=== PATIENT | female | born 1980 | race Caucasian/White ===

== ENCOUNTER 2016-10-28 06:51 | Day surgery (SDC) | payer BC ==
--- NOTE | 2016-10-28 06:37 | History and Physical Report ---
DATE OF EVALUATION: 10/27/2016. CHIEF COMPLAINT AND HISTORY OF CHIEF COMPLAINT: This patient presents with a history of intractable lumbar radiculitis. Due to the failure of all therapies and the heavy reliance upon oral medications with subsequent titration off, she is here for an implanted spinal infusion trial with hydromorphone to determine if this device can maintain pain control and keep her medication requirements down. PAST MEDICAL HISTORY: Noncontributory. REVIEW OF SYSTEMS: The patient is appropriate and in no acute distress. The remainder of the systems review shows migraine headaches, degenerative arthritis , fibromyalgia, depression. SOCIAL HISTORY: Noncontributory. FAMILY HISTORY: Diabetes, coronary artery disease, hypertension. PAST SURGICAL HISTORY: Eye surgery, gallbladder surgery, gastric surgery. ALLERGIES: Compazine and Vistaril. MEDICATIONS ON ADMISSION: To be provided. PHYSICAL EXAMINATION: General: Height is 5 feet, 6 inches. Weight is 200 pounds. Vital Signs: Unavailable. HEENT: Within normal limits. Lungs: Clear. Heart: Regular rate and rhythm. Abdomen: Nontender. Musculoskeletal: Examination of the musculoskeletal system shows diffuse tenderness throughout the lumbar spine. Range of motion produces pain throughout the low back and extending into the extremities. Ambulation: No assistive device utilized. Neurologic: Cranial nerves are intact. IMPRESSION: LUMBAR RADICULITIS, ICD10 CODE M54.16 AND M54.17. PLANS: This patient is here for an implanted spinal catheter infusion trial with hydromorphone. An epidural blood patch will be performed as a prophylactic measure against spinal headache. Consistent with a history of migraine headaches, she is prone and vulnerable to the headache from the dural puncture. The procedure will be outpatient, although an overnight stay will be evaluated. The potential risks, side effects, and complications have all been carefully reviewed and discussed including nerve root injury, spinal cord injury , and headaches. A booklet and CD-ROM provided by the executive steward were presented for the patient and her to review. Eitan Cornell D.O. Date Time JOB NUMBER: [id number] cc: Zeke Gardiner
[~2016-10-28 06:51] MED LIST: ACETAMINOPHEN 1000MG/100 ML PREMIX IV ONE; CEFAZOLIN 2 Gram 50 ML IVPB ONE; FAMOTIDINE 20MG TABLET PO ONE; HYDROMORPHONE HCL IV ONE; MECLIZINE 25 MG TABLET PO ONE; METOCLOPRAMIDE 10 MG TABLET PO ONE; SODIUM CHLORIDE 0.9% IV ONE
[2016-10-28] MEDS ORDERED: AL HYDROX/MAG HYDROX 30ML UD PO PRN (10:56)
[2016-10-28] MEDS ORDERED: DIPHENHYDRAMINE HCL 25 MG CAPSULE PO PRN ×2 (10:56)
[2016-10-28] MEDS ORDERED: SENNOSIDES/DOCUSATE SODIUM UD CAPSULE PO PRN ×2 (10:56)
[2016-10-28] MEDS ORDERED: METOCLOPRAMIDE 10 MG TABLET PO PRN (10:56)
[2016-10-28] MEDS ORDERED: HYDROMORPHONE HCL 1 MG/ML CPJ IM PRN (10:56)
[2016-10-28] MEDS ORDERED: HYDROMORPHONE HCL 2 MG/ML VIAL IM PRN (10:56)
[2016-10-28] MEDS ORDERED: METOCLOPRAMIDE HCL 10 MG/2 ML VIAL IVP PRN (10:56)
[2016-10-28] MEDS ORDERED: OXYCODONE/APAP 10MG-325MG TABLET PO PRN ×2 (10:56)
[2016-10-28] MEDS ORDERED: DIPHENHYDRAMINE HCL IV 50 MG/ML VIAL IVP PRN ×2 (10:56)
[2016-10-28] MEDS ORDERED: HYDROCODONE/APAP 7.5/325MG TABLET PO PRN ×2 (10:56)
[2016-10-28] MEDS ORDERED: TEMAZEPAM 15 MG CAPSULE PO PRN ×2 (10:56)
[2016-10-28] MEDS ORDERED: NALOXONE 0.4 MG/1 ML VIAL IVP PRN (10:56)
[2016-10-28] MEDS ORDERED: ACETAMINOPHEN 325 MG TAB PO PRN ×2 (10:56)
[2016-10-28] MEDS ORDERED: LORAZEPAM 0.5 MG TABLET PO PRN (11:01)
[2016-10-28] MEDS: RINGERS SOLUTION,LACTATED 1,000 ML IV SCH ×3 (11:57→22:26)
[2016-10-28] MEDS ORDERED: CEFAZOLIN 1G VIAL IM ONE (12:20)
[2016-10-28] MEDS ORDERED: LIDOCAINE 1% W/EPI 1:200,000 MPF 30ML SQ ONE (12:20)
[2016-10-28] MEDS ORDERED: BUPIVACAINE 0.5% W/EPI MPF 30 ML VIAL IVP ONE (12:20)
[2016-10-28] MEDS: CEFAZOLIN 2 Gram 50 ML IVPB SCH ×2 (15:51→23:20)
--- NOTE | 2016-10-28 16:25 | Operative Note - [place] ---
DATE OF SURGERY: 10/28/16 PREOPERATIVE DIAGNOSIS: INTRACTABLE LUMBAR RADICULITIS, ICD-10 CODE = M54.16 AND M54.17. OPERATION: 1. FLUOROSCOPICALLY-GUIDED SPINAL ACCESS AT L2/3, PLACEMENT OF THIN-WALLED SPINAL CATHETER T12. 2. DIAGNOSTIC MYELOGRAPHY WITH RADIOLOGIC SUPERVISION AND INTERPRETATION. 3. SPINAL OPIOID BOLUS HYDROMORPHONE 0.002 MG SPINAL SPACE. 4. INCISION, SUBCUTANEOUS DISSECTION, AND ANCHORING OF SPINAL CATHETER TO SUPRASPINOUS FASCIA USING ANCHORING DEVICE AND NONABSORBABLE SUTURE. 5. INCISION, SUBCUTANEOUS DISSECTION, AND CREATION OF SUBCUTANEOUS POUCH, LEFT POSTERIOR GLUTEAL MARGIN. 6. TUNNELING BETWEEN MIDLINE POUCH TO GLUTEAL MARGIN POUCH PLACING CATHETER INTO SMALL POUCH AT GLUTEAL MARGIN. 7. INTERFACE INDWELLING SPINAL CATHETER TO SECONDARY SPINAL COMPONENT BY WAY OF CONNECTOR. TUNNELING SECOND CATHETER COMPONENT SUPERIOR 6 CM EXITING SKIN. 8. INTERFACE EXTERNAL CATHETER TO INFUSION PUMP SET TO DELIVER HYDROMORPHONE AT 0.04 MG PER DAY. 9. CLOSURE OF INCISIONS MIDLINE VICRYL FOR FASCIAL AND RUNNING SUBCUTICULAR VICRYL FOR SKIN, POSTERIOR GLUTEAL INCISION NYLON SUTURE. 10. EPIDURAL BLOOD PATCH AT L3/4, 20 ML AUTOLOGOUS BLOOD DRAWN STERILE TECHNIQUE, LEFT ANTECUBITAL. 11. ALL STERILE DRESSINGS PLACED COVERING CATHETER AND ALL CONNECTIONS UNDER STERILE DRESSING. PATIENT TRANSPORTED TO RECOVERY ROOM STABLE, FLAT, PILLOW UNDER HEAD AND KNEES. SURGEON: SULEMA GEORGE D.O. ANESTHESIA: LOCAL SEDATION. ANESTHESIA PROVIDER: ANTONIO MEJIA CRNA INDICATION: This patient presents with a history of intractable lumbar radiculitis. Due to the failure of all therapies, she is here for a trial of spinal opioids with an implanted catheter technique to determine if implantation of a permanent system can be of any value in her pain control. PROCEDURE: Intravenous line, vital sign monitoring, IV sedation, prepped and draped in sterile technique, patient prone. The spinal interspace at L2/3 was marked, infiltrated, and then a 20-gauge spinal needle beveled long axis in a paramedian approach was used to gain entry into the spinal space. With CSF, a thin-walled spinal catheter was advanced, positioned T12 midbody. Diagnostic myelography performed, the resulting flow characteristics were smooth and linear in the spinal space. No obstructions. No redirections. The access to the spinal space was smooth and easy. No twitch response of lower extremity, which might suggest nerve irritation was noted. With the bolus of Hydromorphone 0.002 mg given through the needle, the needle removed and the catheter was anchored to the supraspinous fascia after an incision was made and dissecting to the supraspinous fascia. The anchoring device and nonabsorbable suture were used to anchor the catheter. At the left posterior gluteal margin, a site ultimately for the pump itself, skin infiltrated, incision made, and subcutaneous dissection was conducted to form a small pouch. A tunneling tool was then used to carry the catheter into the posterior gluteal pouch and then the catheter was interfaced with a second catheter component by way of a connector. The second catheter component was tunneled superior approximately 6 cm and then exited the skin. The external component was then interfaced to an external infusion pump, which was set to deliver Hydromorphone at 0.04 mg a day. The midline incision was closed, Vicryl for fascia, running subcuticular Vicryl for skin. The posterior margin incision was closed with nylon. Dressings were placed. 20 mL of autologous blood drawn sterile technique and then the epidural access at L3/4 was performed. A blood patch was then performed with this blood at this level. Needle removed. The dressings were reinforced covering the catheter and all connections under sterile dressing. She was transported to the Recovery Room flat, pillow under head and knees, stable. No side-effects from the procedure or the sedation. She will be monitored until stable. She will be kept overnight because of a history of migraine headaches and the potential of the procedure triggering a migraine. She was then transported stable. She will be kept overnight. DISCHARGE INSTRUCTIONS IN THE MORNIN. The sites will remain clean and dry. No showering or bathing in any way that would disrupt dressings. 2. Standard medications resumed, including the antibiotic, Levaquin, 500 mg once a day for 14 days. 3. Spinal opioid side-effects including respiratory depression, nausea, vomiting , constipation, urinary retention, lightheadedness or rash have all been discussed and reviewed. All other instructions provided, numbers to contact, problems given. She will be evaluated in the office within the next 3-5 days for a potential increase in her infusion. SULEMA ARIEL, D.O. Date & Time cc: Dr. Ethan Brennan JOB NUMBER: [id number] MTDD
[2016-10-28] MEDS ORDERED: MIDAZOLAM HCL 2MG/2ML VIAL IV ONE (16:42)
[2016-10-28] MEDS ORDERED: *PACU ONLY* KETAMINE HCL 10 MG/ML (20ML) VIAL IV ONE (16:42)
[2016-10-28] MEDS ORDERED: HYDROMORPHONE HCL 2 MG/ML VIAL IV ONE (16:42)
[2016-10-28] MEDS ORDERED: PROPOFOL 10 MG/ML VIAL IV ONE (16:42)
[2016-10-28] MEDS: GABAPENTIN 300 MG CAPSULE PO SCH ×2 (20:44→21:29)
[2016-10-28] MEDS: DOCUSATE SODIUM 100 MG CAPSULE PO SCH ×2 (20:47→22:21)
[2016-10-28] MEDS: BACLOFEN 10 MG TABLET PO SCH ×2 (20:48→21:28)
[2016-10-28] MEDS: METFORMIN 500 MG TABLET PO SCH ×2 (20:49→21:31)
[2016-10-28] MEDS ORDERED: MELATONIN 5 MG TABLET PO SCH (22:00)
[2016-10-28] MEDS ORDERED: TRAZODONE 50 MG TABLET PO SCH (22:00)
[2016-10-28] MEDS ORDERED: CLONAZEPAM 1MG TABLET PO SCH (22:00)
[2016-10-29] MEDS: CEFAZOLIN 2 Gram 50 ML IVPB SCH ×2 (06:12→08:13)
--- NOTE | 2016-11-03 09:53 | RADIOLOGY REPORT ---
EXAM: THORACOLUMBAR SPINE, ONE VIEW HISTORY: PAIN PUMP TRIAL. TECHNIQUE: An AP portable view of the spine was obtained including the lumbar and mid to lower thoracic portions. FINDINGS: By history, an intraspinal catheter is in place, likely entering the spinal canal near the L2-L3 level. The radiopaque tip is probably at the T12 level. Evaluation is, however, limited by increased image noise. Post cholecystectomy changes are present. There are degenerative changes scattered throughout the visualized spine, most pronounced at the lower lumbar levels where they are moderate in degree. No acute osseous abnormality identified. Moderate amount of stool within the colon. IMPRESSION: INTRASPINAL CATHETER IN PLACE ENTERING THE SPINAL CANAL LIKELY AT THE L2-L3 LEVEL AND ITS TIP IS SUSPECTED AT THE T12 LEVEL. JOB NUMBER: [id number] MTDD
== END 2016-10-29 09:00 | disposition home or self-care (01) ==
LOC: SUR 06:51 → MEDSURG 10:21 → SUR 10-29 09:00
PROVIDERS: ATTEND Pain Medicine Interventional Pain Medicine
DX: M54.16 Radiculopathy, lumbar region (principal); M54.17 Radiculopathy, lumbosacral region; E28.2 Polycystic ovarian syndrome; M79.7 Fibromyalgia
CPT/HCPCS: 62350; 00630; 81025; 72020; Q9967; J1170 ×2; J0690 ×2; J3490; J1200; J7040; J7120

== ENCOUNTER 2016-11-11 07:50 | Day surgery (SDC) | payer BC ==
--- NOTE | 2016-11-11 07:41 | History and Physical Report ---
CHIEF COMPLAINT/HISTORY OF CHIEF COMPLAINT: This patient with a history of intractable lumbar radiculitis currently has an ongoing spinal fusion trial with Hydromorphone. Due to the failure of all therapies the trial was conducted. The patient has achieved up to 75+% pain control, has been able to reduce medications and improve functionality. With the failure of all other therapies and the success of the trial she presents today by her request for permanent implant. PAST MEDICAL HISTORY: Noncontributory. PAST SURGICAL HISTORY: Ophthalmologic surgery, gallbladder surgery, and gastric surgery. MEDICATIONS ON ADMISSION: List to be provided. ALLERGIES: COMPAZINE AND VISTARIL. SOCIAL HISTORY: Noncontributory. FAMILY HISTORY: Diabetes, coronary artery disease, and hypertension. SYSTEMS REVIEW: The patient is appropriate in no acute distress. The remainder of the systems review is positive for migraine headaches, degenerative arthritis, fibromyalgia and depression. PHYSICAL EXAMINATION: Height is 5'6", weight is 206 pounds. Vital signs: Previous admission blood pressure 103/69, pulse 66, respiratory 16. HEENT: Within normal limits. LUNGS: Clear. HEART: Regular rate and rhythm. ABDOMEN: Nontender. MUSCULOSKELETAL: Examination of the musculoskeletal system shows diffuse tenderness throughout the lumbar spine. Range of motion causes pain throughout the low back and extending into the extremities. All of the dressings for the implanted catheter trial are intact. Sensory dewitt are intact. NEUROLOGIC: Cranial nerves are intact. IMPRESSION: LUMBAR RADICULITIS, ICD10 CODE M54.16 AND M54.17. PLAN: The patient is here for full implantation of a spinal infusion system. All of the potential risks, side effects, and complications were carefully reviewed and discussed. Program Management Specialist information outlining the potential risks , side effect, and complications have been given and reviewed by the patient. The patient and family understand and all questions were answered. She is here by her request for permanent implantation. This will involve removing all of the external components, redirecting the internal catheter to the pump and placing the pump subcutaneous. The procedure will be considered outpatient although the history may require an overnight stay. SULEMA GEORGE D.O. Date & Time JOB NUMBER: [id number] MTDD
[~2016-11-11 07:50] MED LIST changes: +HYDROMORPHONE HCL/PF 0.002 MG in 0.9 % SODIUM CHLORIDE 10ML VIA 0.998 ML IVP ONE
[2016-11-11] MEDS ORDERED: *PACU ONLY* KETAMINE HCL 10 MG/ML (20ML) VIAL IV ONE (14:00)
[2016-11-11] MEDS ORDERED: MIDAZOLAM HCL 2MG/2ML VIAL IV ONE (14:00)
[2016-11-11] MEDS ORDERED: FENTANYL PF 100MCG/2ML VIAL IV ONE (14:00)
[2016-11-11] MEDS ORDERED: PROPOFOL 10 MG/ML VIAL IV ONE (14:00)
[2016-11-11] MEDS ORDERED: DEXMEDETOMIDINE HCL 200 MCG/2 ML VIAL IV ONE (14:00)
[2016-11-11] MEDS ORDERED: OXYCODONE/APAP 10MG-325MG TABLET PO ONE (16:29)
[2016-11-11] MEDS ORDERED: BUPIVACAINE 0.5% W/EPI MPF 30 ML VIAL IVP ONE (16:29)
[2016-11-11] MEDS ORDERED: LIDOCAINE 1% W/EPI 1:200,000 MPF 30ML SQ ONE (16:29)
[2016-11-11] MEDS ORDERED: CEFAZOLIN 1G VIAL IM ONE (16:29)
--- NOTE | 2016-11-13 13:44 | Operative Note ---
DATE OF SURGERY: 11/11/2016 PREOPERATIVE DIAGNOSES: 1. Lumbar radiculitis ICD10 M54.16, M54.17. 2. Implanted spinal fusion trial of hydromorphone. OPERATION: 1. Incision and facet dissection and removal of external spinal catheter. 2. Incision and sub dissection and creation of subcutaneous pouch at left posterior superior gluteal margin for placement of pump identified as Medtronic 40 mL programmable. 3. Resection of indwelling spinal catheter interface catheter with connector to second catheter component to interface pump. 4. Interface revise resected internal catheter to pump, placement of pump into pouch, securing to posterior fascia using nonabsorbable suture, securing pump to fascial pouch. 5. A 24 gauge Meneses needle inserted into access port, aspiration 0.5 mL catheter contents clearing catheter of opioid and CFS mixture. 6. Diagnostic myelography with radiologic supervision and interpretation using access port confirming flow characteristics and functionality. 7. Closure of incision with Vicryl fascia running subcuticular Vicryl for skin. Dermabond closure. 8. Programming of pump to deliver by continuous infusion hydromorphone at 0.12 mg per day. Anesthesia: Local sedation. Anesthesia Provider: Raquel FONSECA. Indication: This patient presents with a history of intractable lumbar radiculitis and indwelling spinal infusion trial with hydromorphone, ongoing. Due to failure of all other therapies and the success of the trial, she is here for permanent implantation of this system. PROCEDURE: Intravenous line, vital sign monitoring, IV sedation. Prepped, draped in sterile technique. Patient positioned prone. Sterile prep, sterile technique under imaging. The externalized catheter to the pump was clamped at the left posterior gluteal margin. Incision made. A subcutaneous dissection was conducted to the interface between the indwelling catheter and the external catheter. The external catheter was cut and then removed intact pulling out from the incision. The internal catheter was then resected and interface with a second catheter component by way of connector to interface to pump. The incision was then widened and a subcutaneous pouch for the pump, a Medtronic 40 mL programmable was formed. Antibiotic irrigation. Bovie for hemostasis. The revised catheter was interfaced to the pump, which had filled with hydromorphone at 0.1 mg/mL. The pump was then placed into the pouch and secured to the posterior fascia using nonabsorbable sutur, having already been interfaced to the catheter. In the pouch, a 24 gauge Meneses needle was inserted into the access port and 0.5 mL of catheter contents was aspirated, clearing the catheter of all opioid and CSF mixture. Clearing was somewhat difficulty, but accomplished. Diagnostic myelography was then performed. The resulting flow characteristics were smooth and linear, showing flow within the spinal space and into the catheter at the T12-L1 junction, its original site. Confirmation of functionality confirmed. With the pump already secured to the posterior fascia and the pouch using envelope suture. The incision was closed with Vicryl fascia running subcuticular. Vicryl for skin. Dermabond closure. The pump was programmed to deliver by continuous infusion hydromorphone at 0.1 mg per day. She was transported to the recovery room stable, showing no side effects from the procedure or the sedation. DISCHARGE INSTRUCTIONS: 1. Sites to remain clean and dry. No showering or bathing in any way that would destruct dressings. If it happens, contact the clinic. Although the Dermabond will allow showering, she should not shower for the next 24 hours. At that point, the Dermabond will stay intact during shower. 2. Standard medication resumed including Levaquin antibiotic 500 mg once a day for 14 days. 3. Spinal opioid side effects, respiratory depression, nausea, vomiting, constipation, urinary retention and rash have all been discussed and reviewed. 4. The office will contact the patient at home in the next 3 days to set up the appointment to evaluate the site in the next 5-7 days. Until then, her activity level should stay relatively low. No bed rest, just activities at a low level, or limit bend, lift, push, pull. All other instructions provided. Numbers to contact if problem given. At that point, she will be discharged. DO ZAIN Hayes
== END 2016-11-11 11:55 | disposition home or self-care (01) ==
LOC: SUR 07:50
PROVIDERS: ATTEND Pain Medicine Interventional Pain Medicine
DX: M54.16 Radiculopathy, lumbar region (principal); M54.17 Radiculopathy, lumbosacral region
CPT/HCPCS: 62367; 81025; 72020; 62350; 62362; 00630; Q9967; J1170; J3010; J0690; J3490; C1755